=== PATIENT | female | born 1945 | race Caucasian/White ===

== ENCOUNTER 2022-11-29 18:01 | Emergency (ER) | payer MEDICARE, OTHER ==
[~2022-11-29] VITALS: Ht 165.1 cm; Wt 89.8 kg
[2022-11-29 20:00] VITALS: BP 158/74
[2022-11-29] MEDS ORDERED: OXAYDO5 M1 PO (20:50)
[2022-11-29] MEDS ORDERED: ONDA4ODT MM (20:50)
== END 2022-11-29 21:11 | disposition home or self-care (01) ==
LOC: ER 18:01
DX: S42.211A Unspecified displaced fracture of surgical neck of right humerus, initial encounter for closed fracture (principal); W18.30XA Fall on same level, unspecified, initial encounter; I48.91 Unspecified atrial fibrillation
CPT/HCPCS: 73030; 96374; 96375; 99283-25; A9270; J2405; J3010